=== PATIENT | male | born 1975 | race Caucasian/White ===

== ENCOUNTER 2020-05-02 21:05 | Emergency (ER) | payer BC ==
[~2020-05-02] VITALS: Ht 180.3 cm; Wt 88.5 kg
[2020-05-02 21:17] VITALS: Ht 180.3 cm; Wt 88.5 kg
[2020-05-02 22:40] LABS: CALCIUM 9.2 mg/dL (8.5-10.1); CARBON DIOXIDE 24.1 mmol/L (21-32); CHLORIDE SERUM 103 mmol/L (98-107); CREATININE SERUM 0.9 mg/dL (0.7-1.3); GFR1 > 60 mL/min; GLUCOSE SERUM 92 mg/dL (74-106); POTASSIUM SERUM 3.1 mmol/L (3.5-5.1); SODIUM SERUM 139 mmol/L (136-145)
[2020-05-02 22:45] LABS: ALBUMIN 3.7 g/dL (3.4-5.0); ALKALINE PHOSPHATASE 60 U/L (46-116); ALT/SGPT 56 U/L (16-63); AST/SGOT 21 U/L (15-37); BASOPHIL % 0.2 % (0-2); BILIRUBIN TOTAL 0.5 mg/dL (0.20-1.00); PLATELET COUNT 261 x10^3mcL (130-400); RED CELL DISTRIBUTION WIDTH 13.9 % (11.5-14.5); TOTAL PROTEIN, SERUM 7.1 g/dL (6.4-8.2)
[2020-05-02 23:31] VITALS: BP 123/75
== END 2020-05-02 23:30 | disposition home or self-care (01) ==
LOC: ED 21:05
PROVIDERS: Student in an Organized Health Care Education/Training Program
DX: J45.901 Unspecified asthma with (acute) exacerbation (principal); Z88.0 Allergy status to penicillin; F17.210 Nicotine dependence, cigarettes, uncomplicated
CPT/HCPCS: 83880; Q0092